=== PATIENT | male | born 1995 | race Caucasian/White ===

== ENCOUNTER 2017-03-20 11:50 | Emergency (ER) | payer SELFPAY ==
[2017-03-20] MEDS ORDERED: HYDROcodone 10MG/APAP 325MG 1 EA TAB PO ONE (12:13)
[2017-03-20] MEDS ORDERED: methylPREDNISolone SODIUM SUC 125 MG/2 ML VIAL IM ONE (12:13)
--- NOTE | 2017-03-20 12:19 | ED.PDOC ---
History of Present Illness - General Chief Complaint: Back Pain or Injury Stated Complaint: Low back pain/Lumbar Radiculopathy Time Seen by Provider: 03/20/17 11:54 Source: patient, RN notes reviewed, Vital Signs reviewed Exam Limitations: no limitations - History of Present Illness Initial Comments: Patient comes in with c/o of low back pain and lumbar radiculopathy. 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 He was seen @ a [facility] facility 2 days ago and was given the diagnosis of lumbar radiculopathy. He was prescribed Naprosyn and Flexeril w/o improvement of his symptoms. He can't sleep due to the pain. His L leg is numb and will give out on him. No bowel or bladder incontinence. 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 Denies: chills, fever, malaise EENTM: States: no symptoms reported Respiratory: States: no symptoms reported Cardiology: States: no symptoms reported Gastrointestinal/Abdominal: States: no symptoms reported Genitourinary: States: no symptoms reported Musculoskeletal: States: see HPI, back pain Skin: States: no symptoms reported Neurological: States: see HPI, numbness, tingling, weakness - L leg All other Systems: No Change from Baseline Past Medical History (General) - Patient Medical History Hx Stroke: No Hx Congestive Heart Failure: No Hx Diabetes: No - Vaccination History Hx Influenza Vaccination: Yes - 2016 - Social History Hx Tobacco Use: No Family Medical History - Family History Father Family History: No Known Living Status: Still Living Physical Exam - Physical Exam General Appearance: Alert, Comfortable, No apparent distress, Well Developed, Well Groomed, Well Hydrated, Well Nourished Cardiovascular/Respiratory: no respiratory distress Back Exam: no CVA tenderness, no vertebral tenderness Extremity Exam: no evidence of injury, normal range of motion, non-tender Neurologic: alert, normal mood/affect, oriented x 3, motor weakness - L le+ hip flexion, 4 hip extension, 4 plantar flextion of foot, , sensory deficit - decreased sensation to light touch L leg, lateral > medial aspect, other - DTR: Knee: R 1+, L 0 Skin Exam: normal color, warm/dry Comments: Vital Signs 03/20/17 11:55 Temperature 98.2 F Pulse Rate [ 83 Left Radial] Respiratory 20 Rate Blood Pressure 138/67 [Left Arm] O2 Sat by Pulse 100 Oximetry Progress - Progress Progress: 03/20/17 13:36 Resting comfortably. Awaiting MRI 03/20/17 16:05 Patient is currently pain free. MRI showed Syrinx of distal cord. Radiologist recommended MRI of C & T spine. - Results/Orders Results/Orders: MRI of Lumbar spine suggested Syrinx so MRI of C-spine & T-spine were done which shows no Syrinx - was increased signal in CSF. Departure - Departure Clinical Impression: Lumbar radiculopathy, acute, Low back pain Time of Disposition: 17:54 Disposition: Discharge to Home or Self Care Condition: Good Departure Forms: ED Discharge - Pt. Copy, Patient Portal Self Enrollment Instructions: DI for Low Back Pain, DI for Lumbar Radiculopathy Diet: resume usual diet Activity: increase activity as tolerated Prescriptions: Acetamin W/Cod #3 Tab [Tylenol w/CODEINE #3] 1 ea PO Q4HR PRN #15 tab PRN Reason: Moderate To Severe Pain methylPREDNISolone TAB [Medrol Tab] 4 mg PO DAILY #21 tab Home Medications: Ambulatory Orders Acetamin W/Cod #3 Tab [Tylenol w/CODEINE #3] 1 ea PO Q4HR PRN #15 tab 03/20/17 methylPREDNISolone TAB [Medrol Tab] 4 mg PO DAILY #21 tab 03/20/17
--- NOTE | 2017-03-20 15:48 | MRI ---
EXAM DESCRIPTION: Lumbar Spine w/o Contrast CLINICAL HISTORY: 21 years, Male, Lumbar Radiculopathy COMPARISON: None TECHNIQUE: Multiplanar multi sequence images of the lumbar spine were obtained without gadolinium contrast. FINDINGS: Vertebral body height and alignment are well maintained. No bone marrow signal abnormalities are noted. The conus lies posterior to the L1 body. There is some increased T2 signal centrally in the distal tip of the spinal cord are only partially visualized. No cord expansion. The cauda equina is unremarkable. Incidentally noted is a retroaortic left renal vein. The paraspinal and visualized retroperitoneal soft tissues are otherwise unremarkable. At L1-2, there is no disc bulging or facet joint degeneration. At L2-3, the intervertebral disc and facet joints are unremarkable. At L3-4, there is no disc bulging or facet joint degeneration. At L4-5, no significant disc bulging or facet joint degeneration. At L5-S1, no disc bulging or facet joint degeneration. IMPRESSION: No disc bulging or facet joint degeneration or stenosis at any level in the lumbar spine to explain patient symptoms. Increased T2 signal centrally in the far inferior tip of the spinal cord, nonspecific. No cord expansion, but findings suggest the possibility of syrinx. MRI of the cervical and thoracic spine is recommended for further evaluation. Findings and recommendations were reported by telephone to Dr. Oneill by me at the time of this dictation. Electronically signed by: Jaylon Zhang MD 03/20/2017 3:47 PM CDT Workstation: [id number]
--- NOTE | 2017-03-20 16:56 | MRI ---
EXAM DESCRIPTION: Cervical Spine CLINICAL HISTORY: LBP with Syrinx on Lumbar MRI COMPARISON: Lumbar magnetic resonance imaging dated the same date TECHNIQUE: Multiplanar multi sequence noncontrast imaging FINDINGS: There is good alignment of the cervical spine. There is no vertebral abnormality. Craniocervical junction and the cord are unremarkable. C2-3: the disc is well hydrated. There is no loss of height. There is no bulging. The facets are unremarkable with no significant hypertrophy. There is no stenosis or impingement. C3-4: the disc is well hydrated. There is no loss of height. There is no bulging. The facets are unremarkable with no significant hypertrophy. There is no stenosis or impingement. C4-5: the disc is well hydrated. There is no loss of height. There is no bulging. The facets are unremarkable with no significant hypertrophy. There is no stenosis or impingement. C5-6: the disc is well hydrated. There is no loss of height. There is no bulging. The facets are unremarkable with no significant hypertrophy. There is no stenosis or impingement. C6-7: the disc is well hydrated. There is no loss of height. There is no bulging. The facets are unremarkable with no significant hypertrophy. There is no stenosis or impingement. C7-T1: the disc is well hydrated. There is no loss of height. There is no bulging. The facets are unremarkable with no significant hypertrophy. There is no stenosis or impingement. IMPRESSION: Normal cervical spine MRI . No evidence of a syrinx is detected Electronically signed by: Reggie Richards MD 03/20/2017 4:55 PM CDT
--- NOTE | 2017-03-20 17:47 | MRI ---
EXAM DESCRIPTION: Thoracic Spine w/o Contrast CLINICAL HISTORY: 21 years Male, LBP with Syrinx on Lumbar MRI COMPARISON: Cervical and lumbar spine MRI from today. TECHNIQUE: Multiplanar T1 and T2-weighted sequences through the thoracic spine were performed in the absence of intravenous contrast. This exam was performed according to our departmental dose-optimization program which includes use of Automated Exposure Control, adjustment of the mA and/or kV according to patient size and/or use of iterative reconstruction technique. FINDINGS: No syrinx is identified. The increased T2 signal visualized on the lumbar spine images lies between the nerve roots at the junction of the cauda equina and distal spinal cord. No mass or mass effect is seen. Vertebral body heights and disc spaces are maintained. No listhesis. No evidence of old spinal trauma. The central canal is widely patent and there is no mass effect on the cord. IMPRESSION: No evidence of syrinx. The high T2 signal visualized on the lumbar spine was related to CSF signal between the nerve roots. Unremarkable examination. Electronically signed by: Janette Iglesias MD 03/20/2017 5:45 PM CDT
[2017-03-20 19:11] VITALS: BP 133/68; TEMP 98.5; O2SAT 98
== END 2017-03-20 18:00 | disposition home or self-care (01) ==
LOC: ER 11:50
DX: M54.16 Radiculopathy, lumbar region (principal); Z79.899 Other long term (current) drug therapy
CPT/HCPCS: 72141; 72146; 72148; J2930

== ENCOUNTER 2017-04-22 13:37 | Emergency (ER) | payer SELFPAY ==
--- NOTE | 2017-04-22 14:02 | ED.PDOC ---
History of Present Illness - General Chief Complaint: Abdominal Pain Stated Complaint: abdominal pain Time Seen by Provider: 04/22/17 13:49 Information Source: patient, RN notes reviewed, Vital Signs reviewed Exam Limitations: no limitations - History of Present Illness Initial Comments: Patient presents to the ER with c/o of intermittent, sharp epigastric pain that radiates to his chest for the past 2 weeks. Pain is worsened if he lays on his side. No N/V/D. No fever or chills. No similar episodes in the past. Pain is occurring 1-2X/days. Abdominal Pain Onset Location: epigastric Pain Radiation: chest Quality: moderate, intermittent, sharpness, stabbing Timing/Duration: intermittent - over the past 2 weeks Improving Factors: nothing Worsening Factors: other - laying on side Associated Symptoms: chest pain Review of Systems - Review of Systems Constitutional: States: no symptoms reported. Denies: chills, fever, malaise Respiratory: States: no symptoms reported Cardiology: Denies: chest pain, palpitations Gastrointestinal/Abdominal: States: abdominal pain. Denies: see HPI, constipation, diarrhea, nausea, vomiting Musculoskeletal: States: no symptoms reported Skin: States: no symptoms reported Neurological: States: no symptoms reported All other Systems: No Change from Baseline Past Medical History (General) - Patient Medical History Hx Stroke: No Hx Congestive Heart Failure: No Hx Diabetes: No Surgical History: other - Vaccination History Hx Tetanus, Diphtheria Vaccination: Yes Hx Influenza Vaccination: Yes Hx Pneumococcal Vaccination: No - Social History Hx Tobacco Use: No Hx Alcohol Use: Yes - socially Family Medical History - Family History Father Family History: No Known Living Status: Still Living Physical Exam - Physical Exam General Appearance: Alert, Comfortable, No apparent distress, Well Developed, Well Groomed, Well Hydrated, Well Nourished Neck: non-tender, full range of motion, supple, normal inspection Respiratory: chest non-tender, lungs clear, normal breath sounds, no respiratory distress, no accessory muscle use Cardiovascular/Chest: regular rate, rhythm, no edema, no gallop, no JVD, no murmur Gastrointestinal/Abdominal: normal bowel sounds, soft, no organomegaly, no pulsatile mass, tenderness - Epigastric & RUQ w/ +Butterfield sign, no guarding or rebound Extremity: normal range of motion, non-tender, normal inspection, no pedal edema Neurologic: alert, normal mood/affect, oriented x 3 Skin Exam: normal color, warm/dry Special Observations: Laughing, No evidence of discomfort, Smiling Comments: Vital Signs 04/22/17 13:43 Temperature 98.2 F Pulse Rate [ 77 Left Radial] Respiratory 16 Rate Blood Pressure 122/72 [Left Arm] O2 Sat by Pulse 99 Oximetry Progress - Progress Progress: 04/22/17 14:51 Sonogram tech is not available today Advised outpatient gallbladder sonogram ordered by PCP - Results/Orders Results/Orders: Laboratory Tests 04/22/17 04/22/17 04/22/17 13:53 13:58 13:58 WBC 6.5 RBC 5.17 Hgb 15.1 Hct 44.6 MCV 86.4 MCH 29.2 MCHC 33.9 RDW 12.8 Plt Count 235 MPV 8.2 Absolute Neuts (auto) 3.20 Absolute Lymphs (auto) 2.10 Absolute Monos (auto) 0.80 Absolute Eos (auto) 0.30 Absolute Basos (auto) 0.10 Neutrophils % 49.4 Lymphocytes % 32.4 Monocytes % 12.9 H Eosinophils % 4.1 Basophils % 1.2 Sodium 143 Potassium 4.2 Chloride 106 Carbon Dioxide 29 Anion Gap 12.2 BUN 12 Creatinine 0.78 BUN/Creatinine Ratio 15.4 Random Glucose 92 Serum Osmolality 284.4 Calcium 9.3 Total Bilirubin 0.7 AST 21 ALT 17 Alkaline Phosphatase 58 L Serum Total Protein 7.5 Albumin 4.7 Globulin 2.8 Albumin/Globulin Ratio 1.7 Amylase 62 Lipase 35 Urine Color Yellow Urine Appearance Sl cloudy Urine pH 7.5 Ur Specific [place] 1.020 Urine Protein Trace Urine Glucose (UA) Negative Urine Ketones Negative Urine Blood Trace-intact H Urine Nitrite Negative Urine Bilirubin Negative Urine Urobilinogen 0.2 Ur Leukocyte Esterase Negative Urine RBC 3-5 H Urine WBC 0 Ur Epithelial Cells 1-3 Urine Bacteria 0 Departure - Departure Clinical Impression: Abdominal pain Qualifiers: Abdominal location: epigastric Qualified Code(s): R10.13 - Epigastric pain Time of Disposition: 14:52 Disposition: Discharge to Home or Self Care Condition: Good Departure Forms: ED Discharge - Pt. Copy, Patient Portal Self Enrollment Instructions: DI for Abdominal Pain-Adult Diet: bland diet Activity: increase activity as tolerated Home Medications: Ambulatory Orders Acetamin W/Cod #3 Tab [Tylenol w/CODEINE #3] 1 ea PO Q4HR PRN #15 tab 03/20/17 methylPREDNISolone TAB [Medrol Tab] 4 mg PO DAILY #21 tab 03/20/17 Additional Instructions: Follow up with PCP for gallbladder sonogram
[2017-04-22 14:53] VITALS: BP 122/77; TEMP 98.6; O2SAT 98
== END 2017-04-22 14:53 | disposition home or self-care (01) ==
LOC: ER 13:37
DX: R10.13 Epigastric pain (principal)